=== PATIENT | male | born 1985 | race Two or more races ===

== ENCOUNTER 2020-11-04 00:23 | Emergency (ER) | payer OTHER ==
[~2020-11-04] VITALS: Ht 195.6 cm; Wt 127.0 kg
[2020-11-04 01:56] VITALS: BP 131/81
== END 2020-11-04 01:56 ==
LOC: ER 00:28
DX: S63.591A Other specified sprain of right wrist, initial encounter (principal); S83.8X1A Sprain of other specified parts of right knee, initial encounter; X58.XXXA Exposure to other specified factors, initial encounter; Y93.89 Activity, other specified; Y92.89 Other specified places as the place of occurrence of the external cause; Y99.8 Other external cause status
CPT/HCPCS: 73110; 73564-TC